=== PATIENT | female | born 1990 | race Caucasian/White ===

== ENCOUNTER 2016-05-15 18:48 | Emergency (ER) | payer SELFPAY ==
[~2016-05-15] VITALS: Ht 160 cm; Wt 76.0 kg
[~2016-05-15 18:48] MED LIST: MACR100C PO
[2016-05-15 19:02] VITALS: BP 131/61; PULSE 61; RESP 16; TEMP 98.6; O2SAT 99
[2016-05-15] MEDS ORDERED: TETANUS/DIPHTHERIA TOXOID ADULT 0.5 ML VIAL IM ONE (19:30)
--- NOTE | 2016-05-15 19:33 | PD ---
HPI . Left thumb laceration Chief Complaint: Laceration/Skin Injury Time Seen by Provider: 19:24 Travel History International Travel<30 days: No Contact w/Intl Traveler<30days: No Traveled to known affect area: No History of Present Illness HPI Patient states that she was sent here by urgent care for treatment of a laceration to her left thumb. She does not know the date of her last tetanus shot. She states that she cut her thumb with a kitchen knife. PFSH Past Medical History Medical History: Denies Significant Hx Diminished Hearing: No Tetanus Vaccination: Unknown Influenza Vaccination: No ?: Not LMP: 2 MONTHS AGO, STATES IRREGULAR Past Surgical History Surgical History: No Previous Surgery Social History Alcohol Use: Yes (Occ.) Tobacco Use: No Substance Use: No Allergies-Medications (Allergen,Severity, Reaction): Coded Allergies: No Known Allergies (Unverified , 05/15/16) Reported Meds & Prescriptions Reported Meds & Active Scripts Active No Active Prescriptions or Reported Medications Review of Systems Except as stated in HPI: all other systems reviewed are Neg Skin: Positive Other (laceration) Physical Exam Narrative GENERAL: Healthy-appearing woman in no acute distress. SKIN: Warm and dry. She has a less than 1 cm laceration on the pad of her left thumb. Bleeding is brisk. HEAD: Atraumatic. Normocephalic. EYES: Pupils equal and round. ENT: No nasal bleeding or discharge. Mucous membranes pink and moist. NECK: Supple. CARDIOVASCULAR: Regular rate and rhythm. RESPIRATORY: No accessory muscle use. MUSCULOSKELETAL: No obvious deformities. No edema. NEUROLOGICAL: Awake and alert. No obvious cranial nerve deficits. Motor grossly within normal limits. Normal speech. PSYCHIATRIC: Appropriate mood and affect; insight and judgment normal. Data Data Last Documented VS Vital Signs Date Time Temp Pulse Resp B/P Pulse Ox O2 Delivery O2 Flow Rate FiO2 05/15/16 19:02 98.6 61 16 131/61 99 Orders Tetanus/Diphtheria Tox Adult (Tetanus/Di (05/15/16 19:30) Wound Care (05/15/16 19:28) MDM Medical Decision Making Medical Screen Exam Complete: Yes Emergency Medical Condition: Yes Differential Diagnosis Differential diagnosis includes laceration, abrasion. Narrative Course Patient presents for treatment of a left thumb laceration. The laceration is small and does not need repair. Diagnosis Primary Impression: Laceration of left thumb Qualified Code: S61.012A - Laceration of left thumb, initial encounter Additional Instructions: You may remove the dressing in about 24 hours. Then start washing it twice a day with soap and water and applying Neosporin ointment. Scripts No Active Prescriptions or Reported Meds Disposition: 01 DISCHARGE HOME Condition: Stable Azeb Hebert MD May 15, 2016 19:32
[2016-05-15] MEDS ORDERED: LIDOCAINE 1%/EPINEPHrine 1:100,000 SOLN 20 ML VIAL INFIL ONE (20:00)
== END 2016-05-15 20:00 | disposition home or self-care (01) ==
LOC: PHEFT 18:48
DX: S61.012A Laceration without foreign body of left thumb without damage to nail, initial encounter (principal); Z23 Encounter for immunization; W26.0XXA Contact with knife, initial encounter
CPT/HCPCS: 90471; 90714